=== PATIENT | male | born 1935 | race Caucasian/White ===

== ENCOUNTER 2016-06-05 16:00 | Observation (INO) | payer MEDICARE, OTHER ==
[~2016-06-05] VITALS: Ht 188 cm; Wt 84.0 kg
[~2016-06-05 16:00] MED LIST: ASPI325T32 PO; CHOL200025 PO; DOCU100T2 PO; LIP40 PO; METF500T4 PO; METO25TA6 PO; POLY17PO6 PO; POTA-62 PO; [UNRECOGNIZED DRUG - OTHER] PO; [UNRECOGNIZED DRUG - OTHER] PO; [UNRECOGNIZED DRUG - OTHER] PO; [UNRECOGNIZED DRUG - OTHER] PO; [UNRECOGNIZED DRUG - OTHER] PO; [UNRECOGNIZED DRUG - OTHER] PO
[2016-06-05 16:34] VITALS: BP 103/63; PULSE 105; RESP 18; O2SAT 98
[2016-06-05] MEDS ORDERED: APIX5TAB PO (18:07)
[2016-06-05 18:12] LABS: BASOPHILS % (AUTO) 0.8 % (0-3); EOSINOPHILS % (AUTO) 0.3 % (0-5); MONOCYTES % (AUTO) 14.4 % (4-12); Mean Corpuscular Hemoglobin 23.6 pg (27.0-35.0); Mean Corpuscular Volume 76.7 fL (81-100); NEUTROPHILS % (AUTO) 61.2 % (40-74); Platelet Count 76 bil/L (150-400)
[2016-06-05 18:22] LABS: Magnesium 2.2 mg/dL (1.6-2.6)
[2016-06-05 18:31] LABS: TROPONIN T < 0.010 ug/L (0.0-0.011)
--- NOTE | 2016-06-05 19:12 | DRSVH ---
PROCEDURE: X-RAY CHEST ONE VIEW, PORTABLE ([id number]) INDICATIONS: 81 year-old male with shortness of breath. TECHNIQUE: One view of the chest was acquired. COMPARISON: [facility], CT, CT CHEST ABD PELVIS W CON, 06/02/2016, 13:47. [facility], CR, XR CHEST 1VW, 03/08/2016, 13:54. [facility], CR, XR CHEST 2VW, 02/21/2016, 17:38. [facility], CR, XR CHEST 1VW (PORTABLE), 04/13/2015, 3:37. FINDINGS: Surgical changes and devices: Patient is status post coronary artery bypass grafting and cholecystect kiley. Lungs and pleura: Moderate right and small left subpulmonic pleural effusions are unchanged. No pneum othorax. There is persistent right lower lung airspace opacity. Mediastinum: Mediastinal contours appear normal. There is mild cardiomegaly. There is aortic athero sclerosis. Bones and chest wall: No suspicious bony lesions. Overlying soft tissues appear unremarkable. IMPRESSION: 1. Persistent moderate right and small left subpulmonic pleural effusions. 2. Persistent right lower lung airspace opacity, consistent with compressive atelectasis as better se en on recent CT scan. Dictated by: Fish Boyle M.D. on 06/05/2016 at 19:10 Approved by: Fish Boyle M.D. on 06/05/2016 at 19:10
--- NOTE | 2016-06-05 19:17 | ED.REPORT ---
HPI-General Illness Date of Service Jun 05, 2016 ED Provider: Flor Chacon MD Mr. Zambrano is an 81 y/o man with lymphoma who presents today for weakness for the past 1 week. He has a decreased appetite and urinary frequency. "All I want to do is sleep." Per pt's , over the past 2 days he has not had the strength to use a cane to walk. He had to have a wheelchair to get to the doctor 's office today. He was told at today's appointment that the lymphoma has spread from his chest into his pelvis. Nursing Notes Stated Complaint: FAILURE TO THRIVE Chief Complaint: General Complaint Allergies: Coded Allergies: No Known Allergies (Unverified , 04/13/15) PT VERIFIES THAT HE HAS NO KNOWN ALLERGIES Scheduled Apixaban (Eliquis) 5 Mg Tablet 5 MG PO BID Atorvastatin (Lipitor) 40 Mg Tablet 40 MG PO DAILY Cholecalciferol (Vitamin D3) (Vitamin D3) 2,000 Unit Tablet 2,000 UNIT PO DAILY Metformin (Metformin) 500 Mg Tablet 500 MG PO BIDWM Metoprolol Tartrate (Metoprolol Tartrate) 25 Mg Tablet 12.5 MG PO BID General Time Seen by MD: 18:51 Chief Complaint Weakness Sudden in Onset?: No Onset Occurred: 1 week ago Symptom Duration: 1 week Severity: Current: No pain currently Associated with: Reports: Anorexia (for 3 years), Cough (when he swallows unthickened water), Denies: Abdominal pain, Bleeding, Chest pain, Fever, Nausea, Shortness of breath, Vomiting Recent Healthcare: Recent doctor visit (had to use wheelchair to get pt outside of house) Past Medical History Past Medical History - 1994, 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 High cholesterol Non-Hodgkin's Lymphoma - infusions of Rituximab Reports: Diabetes mellitus (type II), Hyperlipidemia, Hypertension, Stroke (2-3 years ago) Past Surgical History Cholecystectomy Right Hip surgery (SAMM) Middle ear surgery Reports: CABG Family History Noncontributory Smoking History Never Smoker Social History Alcohol Use: 1-3 per week Drug Use: Denies drug use Other Social History: , Local resident Ambulatory Status Cane (recently) Review of Systems Full Review of Systems Constitutional: Reports: Fatigue, Lethargy, Recent wt loss, Weakness - generalized, Denies: Chills, Fever Eyes: Denies: Blurred bilateral, Discharge bilateral, Eye pain bilateral, Redness bilateral Ears / Nose / Throat: Reports: 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), Denies: Ear drainage bilateral, Ear ringing bilateral, Hearing loss right, Nasal congestion, Sore throat, Throat pain Respiratory: Denies: Dyspnea on exertion, Non-productive cough, Pleuritic pain , Shortness of breath, Wheezing Cardiovascular: Reports: Edema (in legs), Denies: Chest pain GI: Reports: Anorexia, Denies: Abdominal pain, Constipation, Diarrhea, Dysphagia, Hematochezia, Melena Male: Reports Hematuria (dark brown urine), Reports Urinary frequency, Reports Urination increased, Denies Dysuria, Denies Penile discharge Musculoskeletal: Denies: Back pain, Extremity pain, Extremity swelling, Joint pain, Joint swelling, Lumbar pain, Myalgia, Neck pain, Thoracic pain Hematologic: Denies Bleeding, Denies Bruising Endocrine: Reports: Weight loss, Denies: Cold intolerance, Heat intolerance, Polydipsia, Polyphagia, Polyuria Skin: Denies Bruising, Denies Diaphoresis, Denies Itching, Denies Rash, Denies Swelling, Denies Unexplained bruises Physical Exam General: Thin, no acute distress, well-developed, appropriately interactive HEENT: Normocephalic, atraumatic. External ears without defect. Pupils equal, round, and reactive to light and accommodation. Anicteric sclerae, moist conjunctivae, and no lid lag. Oropharynx dry mucousa free of erythema and cobble stoning. Neck: Supple with full range of motion. No jugular venous distension. No bruits. No lymphadenopathy or thyromegaly. Cardiovascular: Irregular rate and rhythm Pulmonary: Decreased breath sounds bilaterally. Clear to auscultation bilaterally with no crackles, wheezes, or rhonchi. Normal respiratory effort with no use of accessory muscles. Abdomen: Palpable midline. Bowel tones present. Soft, nontender, nondistended. No hepatosplenomegaly. Extremities: Bilateral pitting edema on lower extremity to thigh, R>L. No clubbing, cyanosis, or lymphadenopathy appreciated. Skin: Dry. Normal temperature and texture; no rash, ulcers, or subcutaneous nodules appreciated. Neurological: Cranial nerves grossly intact. Psychiatric: Normal mood and affect. Alert and oriented to person, place, and time. Vital Signs Vital Signs Date Time Temp Pulse Resp B/P Pulse Ox O2 Delivery O2 Flow Rate FiO2 06/05/16 19:38 36.9 106 29 117/45 95 Room Air 06/05/16 16:34 36.4 105 18 103/63 98 Initial VS: Reviewed Interpretation & Diagnostics Interpretation & Diagnostics: CXR done today IMPRESSION: 1. Persistent moderate right and small left subpulmonic pleural effusions. 2. Persistent right lower lung airspace opacity, consistent with compressive atelectasis as better seen on recent CT scan. Dictated by: Fish Boyle M.D. on 06/05/2016 at 19:10 Approved by: Fish Boyle M.D. on 06/05/2016 at 19:10 CT chest, abdomen, and pelvis with contrast on 06/02/2016: IMPRESSION: 1. Bilateral pleural fluid collections stable compared to 04/03/16. 2. Mediastinal lymphadenopathy stable compared to 04/03/16. 3. Bulky, bilateral iliac pelvic mayelin mass markedly increased in size compared to 04/03/16. The bulky pelvic mayelin mass is having marked local mass effect in the lower pelvis. 4. Moderate bilateral hydroureteronephrosis related to bulky pelvic mayelin mass with diminished bilateral renal enhancement compatible with obstructive uropathy. 5. New right inguinal bulky lymphadenopathy and enlarged left anterior pelvic wall subcutaneous lymphadenopathy. 6. Moderate fecal loading throughout the colon likely related to mass effect on the rectosigmoid colon caused by the bulky pelvic mayelin mass. 7. Mild splenomegaly. Dictated by: Fanny King MD, PhD on 06/02/2016 at 15:30 Approved by: Fanny King MD, PhD on 06/02/2016 at 15:30 Lab Results Interpretation Result Diagram: 06/05/16 1736 06/05/16 1736 Test 06/05/16 17:36 06/05/16 19:50 White Blood Count 3.7th/mm3 (3.8-10.1) Red Blood Count 4.07mil/mm3 (4.40-5.80) Hemoglobin 9.6g/dL (13.8-17.2) Hematocrit 31.2% (41.0-50.0) Mean Corpuscular Volume 76.7fL (81-100) Mean Corpuscular Hemoglobin 23.6pg (27.0-35.0) Mean Corpuscular Hemoglobin Concent 30.8% (32.0-37.0) Red Cell Distribution Width 22.9% (12.3-15.4) Platelet Count 76bil/L (150-400) Neutrophils (%) (Auto) 61.2% (40-74) Lymphocytes (%) (Auto) 23.0% (14-46) Monocytes (%) (Auto) 14.4% (4-12) Eosinophils (%) (Auto) 0.3% (0-5) Basophils (%) (Auto) 0.8% (0-3) Sodium Level 138mEq/L (134-144) Potassium Level 4.4mEq/L (3.5-5.2) Chloride Level 97mEq/L (97-108) Carbon Dioxide Level 23mmol/L (18-29) Blood Urea Nitrogen 33mg/dL (8-27) Creatinine 1.59mg/dL (0.76-1.27) Estimat Glomerular Filtration Rate 45mL/min (>59) Glucose Level 100mg/dL (60-99) Calcium Level 10.1mg/dL (8.5-10.1) Magnesium Level 2.2mg/dL (1.6-2.6) Total Bilirubin 0.9mg/dL (0.0-1.2) Aspartate Amino Transf (AST/SGOT) 30U/L (0-50) Alanine Aminotransferase (ALT/SGPT) 10U/L (0-44) Alkaline Phosphatase 95U/L (25-160) Troponin T < 0.010ug/L (0.0-0.011) Total Protein 6.2g/dL (6.4-8.4) Albumin 3.4g/dL (3.4-5.0) Urine Color Yellow (YELLOW) Urine Appearance Cloudy (CLEAR,HAZY) Urine pH 5.0 (5.0-8.0) Urine Specific [place] 1.025 (1.003-1.035) Urine Protein 100mg/dL (NEG,TRACE) Urine Glucose (UA) Negativemg/dL (NEGATIVE) Urine Ketones Tracemg/dL (NEGATIVE) Urine Occult Blood Large (NEGATIVE) Urine Nitrite Negative (NEGATIVE) Urine Bilirubin Negative (NEGATIVE) Urine Urobilinogen Normalmg/dL (NORMAL) Urine Leukocyte Esterase Negative (NEGATIVE) Urine RBC Packed/hpf (0-2) Urine WBC 0-5/hpf (0-5) Urine Epithelial Cells Moderate/hpf (NONE-MOD) Urine Crystals Amorphous urates (NONE Urine Bacteria Few/hpf (NONE-FEW) Urine Hyaline Casts None/lpf (NONE) Urine Granular Casts 5-20 (NONE SEEN) Urine Waxy Casts None seen (NONE SEEN) Urine Red Blood Cell Casts None seen (NONE SEEN) Urine White Blood Cell Casts None seen (NONE SEEN) Urine Mucus None seen (None Seen) Urine Trichomonas None seen (NONE SEEN) Urine Yeast None (NONE SEEN) Urinalysis Comment None Urine Culture Reflexed Not indicated Re-Eval/Medical Decision Med Decision/Clinical Course 1. Failure to thrive -Pt reports decreased oral intake and increased generalized weakness for the past 1 week -CXR done today was stable -Pt received IV fluids in the ED -Most recent CT chest, abdomen, and pelvis on 06/02/2016 showed more masses in his pelvis Consultation : Referral / Consult Name: Deisi Schmitz MD Consulted With: Hospitalist Call Returned at: 21:46 Neurology Technologist: Agrees with eval, Agrees with plan, Accepts admit Note: Dr. Chacon consulted with hospitalist Discharge & Departure Shift Change Sign-Out Patient Care Transferred: Yes Laboratory Evaluation: Back, reviewed by me Imaging Studies: Done, reviewed by me Primary Impression: Failure to thrive Failure to thrive age range: in adult Qualified Code: R62.7 - Adult failure to thrive Additional Impression: Weakness generalized Disposition: ADMITTED TO HOSPITAL Referrals: Khang Rodas MD (PCP) Attending Statement Pt seen and examined with Dr Cho. Progressive lymphoma with failure to thrive too weak for home care will benefit from palliative care/hospice consult. Admitted to hospital Nallely Cho DO Jun 05, 2016 19:17 ARMIRO FRIEND Jun 05, 2016 21:48 Flor Chacon MD Jun 06, 2016 00:15
[2016-06-05] MEDS ORDERED: 0.9% Sodium Chloride 1,000 ML IV ONE (19:23)
[2016-06-05 19:38] VITALS: BP 117/45; PULSE 106; RESP 29; O2SAT 95
[2016-06-05 21:45] LABS: APPEARANCE,URINE CLOUDY (CLEAR,HAZY); COLOR,URINE YELLOW (YELLOW); OCCULT BLOOD,URINE LARGE (NEGATIVE); UROBILINOGEN,URINE NORMAL (NORMAL)
[2016-06-05 22:15] VITALS: BP 142/36; PULSE 82; RESP 16; O2SAT 99
[2016-06-05] MEDS ORDERED: Ondansetron 2 mg/mL 2 mL Inj IVPUSH PRN (22:30)
[2016-06-05] MEDS ORDERED: Polyethylene Glycol (PEG) 17 Gm Powder PO PRN (22:30)
[2016-06-05] MEDS ORDERED: Alum-Mag Hydrox-Simeth 30 mL Suspension PO PRN (22:30)
--- NOTE | 2016-06-05 22:38 | PCM.HPMED ---
Subjective Date of Service Jun 05, 2016 Primary Provider: Admitting Physician: Deisi Schmitz MD Primary Care Physician: Khang Rodas MD Attending Physician: Deisi Schmitz MD Admit Status: From the Emergency Department, 23-Hour Observation, Non-Telemetry Chief Complaint: Increasing generalized weakness History of Present Illness: This is an 81-year-old male who has a history of non-Hodgkin's lymphoma who presented to the ER with increasing generalized weakness over the past 1 week. Decreased appetite along with increased urinary frequency. He did go to his oncologist office today Dr. Rao and per was told that his lymphoma has been progressing. He and his at this point requested comfort care only. She does have a pulse form with her and also includes no antibiotic therapy. At this point he is too weak for the to take care of him and are looking for possible placement. Review of Systems: Denies any abdominal pain nausea or vomiting. Does feel quite tired. Does have cough with liquids. He has had progressive anorexia over the past few years. All other review of systems are reviewed and are negative except for as in history of present illness. Allergies Coded Allergies: No Known Allergies (Unverified , 04/13/15) PT VERIFIES THAT HE HAS NO KNOWN ALLERGIES Home Medications Scheduled Apixaban (Eliquis) 5 Mg Tablet 5 MG PO BID Atorvastatin (Lipitor) 40 Mg Tablet 40 MG PO DAILY Cholecalciferol (Vitamin D3) (Vitamin D3) 2,000 Unit Tablet 2,000 UNIT PO DAILY Metformin (Metformin) 500 Mg Tablet 500 MG PO BIDWM Metoprolol Tartrate (Metoprolol Tartrate) 25 Mg Tablet 12.5 MG PO BID [facility] PAST MEDICAL HISTORY: Significant for: 1. Marginal zone lymphoma diagnosed in 2006, detailed in my clinic note dated March 15, 2016, under the [facility]. Briefly the patient was placed into a clinical remission with single agent rituximab back in September 2014. He had a recurrence of his disease back in January 2016, presenting with increasing shortness of breath and cough. The patient underwent second-line therapy with bendamustine and rituximab; one cycle was administered on February 16, 2016. Restaging CT scan of the chest, abdomen, and pelvis dated April 03, 2016, a reflection of one cycle of therapy, showing significant decrease in the mediastinal adenopathy, retroperitoneal and iliac chain adenopathy, as well as decreased size of the spleen as compared to baseline scan. There was no change in the right greater than left pleural effusion. The patient's treatment has also been on hold secondary to decreased performance status with an approximate 6 kg weight loss over the past four months. Initial workup including random cortisol, TSH, and testosterone levels in March 2016 only showing a mildly decreased testosterone level of 212. Recent bone marrow biopsy dated May 08, 2016, showing normal cellular marrow, with decreased maturing granulocytes and relative erythroid hyperplasia, but no morphological or immunophenotypical evidence of lymphoma. Flow cytometry from the aspirate was otherwise unremarkable for B-cell lymphoma. There is no evidence of myelofibrosis or myelodysplasia. Cellularity was noted to be 30% to 35%. Megakaryocytes were adequate. Maturing granulocyte population was markedly decreased in comparison with the maturing erythroid series. Cytogenetics reporting a normal 46 XY chromosome pattern. 2. CVA. 3. Coronary artery disease. 4. Secondary thrombocytopenia. 5. Diabetes. 6. Hypertension. 7. Hypercholesterolemia. Past Medical History [place] - 1994, 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 High cholesterol Non-Hodgkin's Lymphoma - infusions of Rituximab Reports: Diabetes mellitus (type II), Hyperlipidemia, Hypertension, Stroke (2-3 years ago) Past Surgical History Cholecystectomy Right Hip surgery (SMAM) Middle ear surgery Reports: CABG Social History Hx Alcohol Use: No Hx Substance Use: No Smoking Status: Never Smoker Living Arrangement: with Family Exam Vital Signs Vital Sign - Last Date Time Temp Pulse Resp B/P Pulse Ox O2 Delivery O2 Flow Rate FiO2 06/05/16 22:15 82 16 142/36 99 Room Air 06/05/16 19:38 36.9 Exam Constitutional: Lethargic elderly male new Head: Normocephalic atraumatic Eyes: PERRLA DC [place] Neck: no adenopathy Chest: decreased breath sounds at his bases Cor: Regular rate and rhythm S1-S2 Abdomen: Soft nontender bowel sounds present Extremity: Trace bilateral pedal edema Skin: No rashes Psych: Normal mood and affect Neuro: Alert and oriented 3 and moves all extremities equally Lab and Diagnostics Labs Laboratory Tests 72 Hours Test 06/05/16 17:36 06/05/16 19:50 White Blood Count 3.7th/mm3 (3.8-10.1) Red Blood Count 4.07mil/mm3 (4.40-5.80) Hemoglobin 9.6g/dL (13.8-17.2) Hematocrit 31.2% (41.0-50.0) Mean Corpuscular Volume 76.7fL (81-100) Mean Corpuscular Hemoglobin 23.6pg (27.0-35.0) Mean Corpuscular Hemoglobin Concent 30.8% (32.0-37.0) Red Cell Distribution Width 22.9% (12.3-15.4) Platelet Count 76bil/L (150-400) Neutrophils (%) (Auto) 61.2% (40-74) Lymphocytes (%) (Auto) 23.0% (14-46) Monocytes (%) (Auto) 14.4% (4-12) Eosinophils (%) (Auto) 0.3% (0-5) Basophils (%) (Auto) 0.8% (0-3) Sodium Level 138mEq/L (134-144) Potassium Level 4.4mEq/L (3.5-5.2) Chloride Level 97mEq/L (97-108) Carbon Dioxide Level 23mmol/L (18-29) Blood Urea Nitrogen 33mg/dL (8-27) Creatinine 1.59mg/dL (0.76-1.27) Estimat Glomerular Filtration Rate 45mL/min (>59) Glucose Level 100mg/dL (60-99) Calcium Level 10.1mg/dL (8.5-10.1) Magnesium Level 2.2mg/dL (1.6-2.6) Total Bilirubin 0.9mg/dL (0.0-1.2) Aspartate Amino Transf (AST/SGOT) 30U/L (0-50) Alanine Aminotransferase (ALT/SGPT) 10U/L (0-44) Alkaline Phosphatase 95U/L (25-160) Troponin T < 0.010ug/L (0.0-0.011) Total Protein 6.2g/dL (6.4-8.4) Albumin 3.4g/dL (3.4-5.0) Urine Color Yellow (YELLOW) Urine Appearance Cloudy (CLEAR,HAZY) Urine pH 5.0 (5.0-8.0) Urine Specific [place] 1.025 (1.003-1.035) Urine Protein 100mg/dL (NEG,TRACE) Urine Glucose (UA) Negativemg/dL (NEGATIVE) Urine Ketones Tracemg/dL (NEGATIVE) Urine Occult Blood Large (NEGATIVE) Urine Nitrite Negative (NEGATIVE) Urine Bilirubin Negative (NEGATIVE) Urine Urobilinogen Normalmg/dL (NORMAL) Urine Leukocyte Esterase Negative (NEGATIVE) Urine RBC Packed/hpf (0-2) Urine WBC 0-5/hpf (0-5) Urine Epithelial Cells Moderate/hpf (NONE-MOD) Urine Crystals Amorphous urates (NONE Urine Bacteria Few/hpf (NONE-FEW) Urine Hyaline Casts None/lpf (NONE) Urine Granular Casts 5-20 (NONE SEEN) Urine Waxy Casts None seen (NONE SEEN) Urine Red Blood Cell Casts None seen (NONE SEEN) Urine White Blood Cell Casts None seen (NONE SEEN) Urine Mucus None seen (None Seen) Urine Trichomonas None seen (NONE SEEN) Urine Yeast None (NONE SEEN) Urinalysis Comment None Urine Culture Reflexed Not indicated Result Diagram: 06/05/[id number]/[id number] X-Rays, CTs and MRIs Patient Name: TODD JOSEPH MR#: [id number] Location: [facility] [place] Ordering Phys: DOC, ED Date of Service: 06/05/16 1720 PROCEDURE: X-RAY CHEST ONE VIEW, PORTABLE ([id number]) INDICATIONS: 81 year-old male with shortness of breath. TECHNIQUE: One view of the chest was acquired. COMPARISON: [facility], CT, CT CHEST ABD PELVIS W CON, 06/02/2016, 13:47. [facility], CR, XR CHEST 1VW, 03/08/2016, 13:54. [facility], CR, XR CHEST 2VW, 02/21/2016, 17:38. [facility], CR, XR CHEST 1VW (PORTABLE), 04/13/2015, 3:37. FINDINGS: Surgical changes and devices: Patient is status post coronary artery bypass grafting and cholecystectomy. Lungs and pleura: Moderate right and small left subpulmonic pleural effusions are unchanged. No pneumothorax. There is persistent right lower lung airspace opacity. Mediastinum: Mediastinal contours appear normal. There is mild cardiomegaly. There is aortic atherosclerosis. Bones and chest wall: No suspicious bony lesions. Overlying soft tissues appear unremarkable. IMPRESSION: 1. Persistent moderate right and small left subpulmonic pleural effusions. 2. Persistent right lower lung airspace opacity, consistent with compressive atelectasis as better seen on recent CT scan. Dictated by: Fish Boyle M.D. on 06/05/2016 at 19:10 Approved by: Fish Boyle M.D. on 06/05/2016 at 19:10 Patient Name: TODD JOSEPH MR#: [id number] Location: [facility] Ordering Phys: Sang Rao DO Date of Service: 06/02/16 1237 PROCEDURE: CT CHEST, ABDOMEN AND PELVIS WTIH CONTRAST ([id number]) INDICATIONS: NON HODGKINS LYMPHOMA,RESTAGE TECHNIQUE: After the administration of oral and intravenous contrast, 5 mm thick sections acquired from the lung apices to the symphysis. 5 mm coronal and sagittal reformats were performed, with additional 7 mm coronal MIP reformats through the lungs. For radiation dose reduction, the following was used: automated exposure control, adjustment of mA and/or kV according to patient size. COMPARISON: [facility], CT, CT CHEST ABD PELVIS W CON, 02/04/2016, 13:23. [facility], CR, CHEST 1VW, 12/08/2014, 9:46. [facility], CT, CHEST/ABD/PELVIS W/CON (PNL), 01/28/2014, 16:34. [facility], CT, CHEST/ABD/PELVIS W/CON (PNL), 01/21/2013, 11:30. [facility], CT, NECK/CHEST/ABD/PEL W/CONT (P), 09/18/2011, 15:45. [facility], CT, CT CHEST ABD PELVIS W CON, 06/16/2015, 13:25. [facility], CT, CT CHEST ABD PELVIS W CON, 04/03/2016, 15:39. FINDINGS: Image quality: Excellent. CHEST: Lungs and pleura: Atelectasis within the right lung base is stable compared to prior examination. Rounded atelectasis in the left lung base/lateral lingula is stable compared to prior examination. Moderate-sized peripheral enhancing right- sided pleural fluid collection is stable. Small, peripherally enhancing left- sided pleural fluid collection is stable. Central and peripheral airways appear patent and normal in caliber. Mediastinum: The heart is enlarged. Postsurgical changes compatible with prior CABG procedure again noted. No pericardial effusion. Left paramedian, prevascular mediastinal soft tissue density mass is stable in size and contour compared to prior CT scan measuring 3.3 x 2.8 cm in the current study (3.4 x 2.7 cm previously). Precarinal mediastinal lymphadenopathy is stable compared to prior examination measuring 1.4 cm in the short axis in the current study ( 1.4 cm previously). No new mediastinal lymphadenopathy identified. No hilar adenopathy by size criteria. Thoracic aorta and central pulmonary arteries are normal in size. Esophagus is normal in caliber. Small hiatal hernia is stable. Chest wall: No axillary or supraclavicular adenopathy by size criteria. Thyroid gland is within normal limits. ABDOMEN: Solid organs: Liver is normal in size and enhancement. The spleen is mildly enlarged at 15.3 cm in longitudinal axis. Gallbladder is surgically absent. Biliary system is non dilated. Pancreas enhances normally. No adrenal nodules. Kidneys demonstrate normal size with diminished bilateral enhancement and bilateral moderate hydroureteronephrosis related to bulky pelvic lymphadenopathy. Peritoneum and bowel: Bowel loops demonstrate normal wall thickness and caliber. Moderate amount of stool seen throughout the colon. No free air. Moderate amount of scattered ascites is noted in the abdomen and pelvis. Nodes and vessels: Bulky, confluent, bilateral iliac mayelin masses are increased in size compared to prior examinations. The confluent, bulky pelvic lymphadenopathy is having mass effect on loops of bowel, the distal ureters, urinary bladder and the pelvic vasculature. Aorta and inferior vena cava are normal in size. Miscellaneous: No ventral hernias. PELVIS: Genitourinary: Bladder wall thickness is normal. Miscellaneous: No inguinal hernias. Bulky right inguinal lymphadenopathy is noted with largest lymph node measuring 2.6 cm in short axis. Large lymph node is noted in the subcutaneous fat of anterior left pelvic wall that measures 1.7 cm in short axis. Bones: No suspicious bony lesions. No vertebral body compression fractures. Postsurgical changes compatible with right hip arthroplasty are noted. IMPRESSION: 1. Bilateral pleural fluid collections stable compared to 04/03/16. 2. Mediastinal lymphadenopathy stable compared to 04/03/16. 3. Bulky, bilateral iliac pelvic mayelin mass markedly increased in size compared to 04/03/16. The bulky pelvic mayelin mass is having marked local mass effect in the lower pelvis. 4. Moderate bilateral hydroureteronephrosis related to bulky pelvic mayelin mass with diminished bilateral renal enhancement compatible with obstructive uropathy. 5. New right inguinal bulky lymphadenopathy and enlarged left anterior pelvic wall subcutaneous lymphadenopathy. 6. Moderate fecal loading throughout the colon likely related to mass effect on the rectosigmoid colon caused by the bulky pelvic mayelin mass. 7. Mild splenomegaly. 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 # Type II diabetes, chronic, present on admission We will continue with his metformin # Hyperlipidemia, chronic, present on admission Continue with statin therapy # Oral anticoagulation, chronic, present on admission Continue with apixaban which I believe he is on this for paroxysmal atrial fibrillation # DVT prophylaxis Patient is on apixaban # CODE STATUS DO NOT RESUSCITATE DO NOT INTUBATE, Comfort Care only Pain Evaluation: Adequate Pain Control GI Prophylaxis: H2 federico VTE Prophylaxis: Other (patient is on apixaban) Resuscitation Status: DNR/DNI:Do Not Resuscitate/Intubate Time spent 45 minutes Deisi Schmitz MD Jun 05, 2016 22:38
[2016-06-05 22:55] VITALS: BP 109/62; PULSE 18; RESP 18; O2SAT 95
[2016-06-05 23:10] VITALS: BP 142/36; PULSE 82; RESP 16; O2SAT 99
[2016-06-05] MEDS: 0.9% Sodium Chloride 1,000 ML IV SCH (23:27)
[2016-06-06] VITALS (8 sets, daily range): BP systolic 100–121; BP diastolic 59–69; PULSE 89–106; RESP 16–22; O2SAT 93–96
[2016-06-06] MEDS ORDERED: Heparin 5,000 Unit/mL Inj SUBQ SCH (00:30)
--- NOTE | 2016-06-06 00:33 | NUR ---
Admit Patient arrived to floor at 2255 via gurney. Report given by Shari. Patient on room air. Vitals stable. Peripheral IV in left AC. Patient weak and unable to stand.
--- NOTE | 2016-06-06 03:06 | NUR ---
Unilateral edema Patient's right leg was larger than the left leg upon admission. Contacted Dr. Schmitz. She stated the patient was on Apixaban and should not be at risk of DVT. Patient stated he took his Apixaban this morning.
--- NOTE | 2016-06-06 06:41 | NUR ---
Rest Patient has been resting most of the night. Patient is incontinent of urine and is wearing a brief. Patient taking pain medications with nectar thick liquids. A&Ox3. Room air 94%.
[2016-06-06] MEDS: 0.9% Sodium Chloride 1,000 ML IV SCH ×2 (09:27→19:55)
--- NOTE | 2016-06-06 16:27 | NUR ---
Social Work Screening D: EMR Reviewed. 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 Insurance is Medicare and for Life. PCP is Dr. Rodas. Per EMR, Pt lives at home with his Pao [phone]. Pt's no longer able to care for Pt. Pt on comfort measures and requesting Hospice. LUISA contacted Tata at [facility] to request an information visit. Tata called back and reported information could be scheduled for tomorrow, Sunday. LUISA attempted several times to meet with Pt's spouse but not present in room. SW will follow up first thing Sunday morning. A: Pt who is end of life P: Pt's no longer able to care for Pt. Pt on comfort measures and requesting Hospice. LUISA contacted Tata at [facility] to request an information visit. Tata called back and reported information could be scheduled for tomorrow, Sunday. LUISA attempted several times to meet with Pt's spouse but not present in room. LUISA will follow up first thing Sunday morning. FRENCH Le
--- NOTE | 2016-06-06 16:30 | NUR ---
ACTIVITY/DIET Patient denies pain. Poor appetite. Tolerating liquids PO. Denies nausea. No emesis noted. Denies SOB. Turned and repositioned Q 2 hrs. Stage 2 pressure ulcer noted on his sacral area. WCS assessed the patient. Per WCS current mattress is suitable at this time. Mepilex foam to be placed on his sacral area. To be changed Q 2-3 days. Care continues.
--- NOTE | 2016-06-06 17:53 | NUR ---
Wound Care PU protocol received, pt seen at bedside. 81 year-old male who has a history of non-Hodgkin's lymphoma who presented to the ER with increasing generalized weakness over the past 1 week. Presents in standard hospital bed, right heel red but blanchable, left is fine. Mepilex removed from back reveals small stage 2 PU 1 cm in diameter at coccxy. Recommend frequent repositioning, pt placed in left sidelying, heels floated. Pressure precautions in place.
--- NOTE | 2016-06-06 19:49 | NUR ---
Case Management: Attempted to provide Observation Brochure but patient was sleeping soundly and no family present at 1930. Try again tomorrow am. Yi Rogers RN
--- NOTE | 2016-06-07 04:18 | NUR ---
Rest Patient resting quietly in bed this shift. Patient uses call light appropriately when he would like assistance. Patient is incontinent of urine and is wearing a brief. Patient A&Ox3. Cooperative with care and good at letting staff know what he needs. Patient on rm air at 95%. Call light within reach.
[2016-06-07] MEDS: 0.9% Sodium Chloride 1,000 ML IV SCH ×2 (06:20→17:34)
[2016-06-07 06:21] VITALS: BP 110/67; PULSE 108; RESP 18; O2SAT 96
--- NOTE | 2016-06-07 07:29 | PCM.PNMED ---
Subjective Date of Service Jun 07, 2016 Subjective pt seen and examined, pt has no complaints at the moment. Patient is eating much better. Exam Vital Signs Vital Sign - Last Date Time Temp Pulse Resp B/P Pulse Ox O2 Delivery O2 Flow Rate FiO2 06/07/16 06:21 36.5 108 18 110/67 96 Room Air Intake and Output 06/06/16 06/06/16 06/07/16 Cumulative From/Thru 15:00 23:00 07:00 06/05/16 16:34 - 06/07/16 06:44 Intake Total 2451 ml 1805 ml 5656 ml Output Total 175 ml 406 ml 931 ml Balance 2276 ml 1399 ml 4725 ml Intake Oral 760 ml 527 ml 1337 ml IV Total 1691 ml 1278 ml 3969 ml TPN/PPN 350 ml Output Urine Total 175 ml 406 ml 931 ml # Voids 2 4 # Bowel Movements 0 0 Exam General: Generally well appearing male, more conversive this morning HEENT: sclerae anicteric, oral mucosa moist Neck: no apparent JVD Chest: clear to auscultation Cardiac: S1S2, no murmur Abdomen: BS active, non-tender, not bloated or tympanitic Extremities: No edema Neuro: A&O, cranial nerves symmetric, motor strength and coordination normal Lab and Diagnostics Result Diagram: 06/05/16173506/05/161735 X-Rays, CTs and MRIs Patient Name: TODD JOSEPH MR#: [id number] Location: [facility] Ordering Phys: JESSY, ED Date of Service: 06/05/16 172 PROCEDURE: X-RAY CHEST ONE VIEW, PORTABLE ([id number]) INDICATIONS: 81 year-old male with shortness of breath. TECHNIQUE: One view of the chest was acquired. COMPARISON: [facility], CT, CT CHEST ABD PELVIS W CON, 06/02/2016, 13:47. [facility], CR, XR CHEST 1VW, 03/08/2016, 13:54. [facility], CR, XR CHEST 2VW, 02/21/2016, 17:38. [facility], CR, XR CHEST 1VW (PORTABLE), 04/13/2015, 3:37. FINDINGS: Surgical changes and devices: Patient is status post coronary artery bypass grafting and cholecystectomy. Lungs and pleura: Moderate right and small left subpulmonic pleural effusions are unchanged. No pneumothorax. There is persistent right lower lung airspace opacity. Mediastinum: Mediastinal contours appear normal. There is mild cardiomegaly. There is aortic atherosclerosis. Bones and chest wall: No suspicious bony lesions. Overlying soft tissues appear unremarkable. IMPRESSION: 1. Persistent moderate right and small left subpulmonic pleural effusions. 2. Persistent right lower lung airspace opacity, consistent with compressive atelectasis as better seen on recent CT scan. Dictated by: Fish Boyle M.D. on 06/05/2016 at 19:10 Approved by: Fish Boyle M.D. on 06/05/2016 at 19:10 Patient Name: TODD JOSEPH MR#: [id number] Location: [facility] Ordering Phys: Sang Rao DO Date of Service: 06/02/16 1237 PROCEDURE: CT CHEST, ABDOMEN AND PELVIS WTIH CONTRAST ([id number]) INDICATIONS: NON HODGKINS LYMPHOMA,RESTAGE TECHNIQUE: After the administration of oral and intravenous contrast, 5 mm thick sections acquired from the lung apices to the symphysis. 5 mm coronal and sagittal reformats were performed, with additional 7 mm coronal MIP reformats through the lungs. For radiation dose reduction, the following was used: automated exposure control, adjustment of mA and/or kV according to patient size. COMPARISON: [facility], CT, CT CHEST ABD PELVIS W CON, 02/04/2016, 13:23. [facility], CR, CHEST 1VW, 12/08/2014, 9:46. [facility], CT, CHEST/ABD/PELVIS W/CON (PNL), 01/28/2014, 16:34. [facility], CT, CHEST/ABD/PELVIS W/CON (PNL), 01/21/2013, 11:30. [facility], CT, NECK/CHEST/ABD/PEL W/CONT (P), 09/18/2011, 15:45. [facility], CT, CT CHEST ABD PELVIS W CON, 06/16/2015, 13:25. [facility], CT, CT CHEST ABD PELVIS W CON, 04/03/2016, 15:39. FINDINGS: Image quality: Excellent. CHEST: Lungs and pleura: Atelectasis within the right lung base is stable compared to prior examination. Rounded atelectasis in the left lung base/lateral lingula is stable compared to prior examination. Moderate-sized peripheral enhancing right- sided pleural fluid collection is stable. Small, peripherally enhancing left- sided pleural fluid collection is stable. Central and peripheral airways appear patent and normal in caliber. Mediastinum: The heart is enlarged. Postsurgical changes compatible with prior CABG procedure again noted. No pericardial effusion. Left paramedian, prevascular mediastinal soft tissue density mass is stable in size and contour compared to prior CT scan measuring 3.3 x 2.8 cm in the current study (3.4 x 2.7 cm previously). Precarinal mediastinal lymphadenopathy is stable compared to prior examination measuring 1.4 cm in the short axis in the current study ( 1.4 cm previously). No new mediastinal lymphadenopathy identified. No hilar adenopathy by size criteria. Thoracic aorta and central pulmonary arteries are normal in size. Esophagus is normal in caliber. Small hiatal hernia is stable. Chest wall: No axillary or supraclavicular adenopathy by size criteria. Thyroid gland is within normal limits. ABDOMEN: Solid organs: Liver is normal in size and enhancement. The spleen is mildly enlarged at 15.3 cm in longitudinal axis. Gallbladder is surgically absent. Biliary system is non dilated. Pancreas enhances normally. No adrenal nodules. Kidneys demonstrate normal size with diminished bilateral enhancement and bilateral moderate hydroureteronephrosis related to bulky pelvic lymphadenopathy. Peritoneum and bowel: Bowel loops demonstrate normal wall thickness and caliber. Moderate amount of stool seen throughout the colon. No free air. Moderate amount of scattered ascites is noted in the abdomen and pelvis. Nodes and vessels: Bulky, confluent, bilateral iliac mayelin masses are increased in size compared to prior examinations. The confluent, bulky pelvic lymphadenopathy is having mass effect on loops of bowel, the distal ureters, urinary bladder and the pelvic vasculature. Aorta and inferior vena cava are normal in size. Miscellaneous: No ventral hernias. PELVIS: Genitourinary: Bladder wall thickness is normal. Miscellaneous: No inguinal hernias. Bulky right inguinal lymphadenopathy is noted with largest lymph node measuring 2.6 cm in short axis. Large lymph node is noted in the subcutaneous fat of anterior left pelvic wall that measures 1.7 cm in short axis. Bones: No suspicious bony lesions. No vertebral body compression fractures. Postsurgical changes compatible with right hip arthroplasty are noted. IMPRESSION: 1. Bilateral pleural fluid collections stable compared to 04/03/16. 2. Mediastinal lymphadenopathy stable compared to 04/03/16. 3. Bulky, bilateral iliac pelvic mayelin mass markedly increased in size compared to 04/03/16. The bulky pelvic mayelin mass is having marked local mass effect in the lower pelvis. 4. Moderate bilateral hydroureteronephrosis related to bulky pelvic mayelin mass with diminished bilateral renal enhancement compatible with obstructive uropathy. 5. New right inguinal bulky lymphadenopathy and enlarged left anterior pelvic wall subcutaneous lymphadenopathy. 6. Moderate fecal loading throughout the colon likely related to mass effect on the rectosigmoid colon caused by the bulky pelvic mayelin mass. 7. Mild splenomegaly. 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 # Type II diabetes, chronic, present on admission We will continue with his metformin # Hyperlipidemia, chronic, present on admission Continue with statin therapy # Oral anticoagulation, chronic, present on admission Continue with apixaban which I believe he is on this for paroxysmal atrial fibrillation # DVT prophylaxis Patient is on apixaban # CODE STATUS DO NOT RESUSCITATE DO NOT INTUBATE GI Prophylaxis: H2 federico VTE Prophylaxis: Other (patient is on apixaban) VTE Mechanical Devices: Intermittant Pneumatic CD Resuscitation Status: DNR/DNI:Do Not Resuscitate/Intubate Ab Ayon MD Jun 07, 2016 07:29
--- NOTE | 2016-06-07 11:19 | NUR ---
Gave access and faxed facesheet to [facility] per TAX ACCOUNTING MANAGER, this will be private with hospice.
--- NOTE | 2016-06-07 11:54 | NUR ---
Case Management: OBS brochure given and explained to patient and spouse. Marga Stanton RN
--- NOTE | 2016-06-07 11:58 | NUR ---
Social Work Initial Assessment and Continued Discharge Planning: SW met with patient and at bedside to discuss discharge plan. Lisa is a 81 year old made admitted under observation status on 06/05/16 for failure to thrive and end stage lmphoma. Patient payer as Medicare and [employer]. Patient PCP as Khang Rodriguez. Patient resides with in [facility] who provides support and care. Patient has no previous C history. Patient has previous SNF history at [facility]. Patient was a walker for use at home. Patient has AD and patient was encouraged to bring in from home. Meeting with patient and [facility] took place. Patient signed consent with hospice. Patient states she will be unable to care for patient needs at home and seeking remote computer terminal operator care at SNF, [facility] per choice. Choice list offered and declined. SW notified SW salon assistant to send referral to [facility] for possible acceptance. Per hospice rep, SW to be contact to determine opening date/time. Patient to pay privately for SNF placement and in agreement. SW will continue to follow. PLAN: [facility] under hospice [facility] services, pending acceptance from SNF and hospice open time. SNF placement will be private pay, family in agreement. Lydia BRASWELL Addendum: 06/07/16 at 1204 by NASREEN NIEVES Amended: Links added. Addendum: 06/07/16 at 1611 by NASREEN FERNANDEZ SS Per Aislinn at [facility], patient accepted and agency plans to open services on Sunday at 10-11am. Rep aware of discharge for tomorrow and abilities to begin services on Sunday. Patient accepted to [facility] per SNF rep Mario. Facility to arrange transport. updated. SW will continue to follow. PLAN: Accepted to [facility] [place] with [facility] to follow and open services on Sunday from 10am-11am. Lydia BRASWELL
--- NOTE | 2016-06-07 12:38 | NUR ---
Edema Pt has significant edema in left hand and lower arm where IV is placed. IV is intact and patent with no s/s of infiltration. Per MD okay to reduce IV fluids to 75ml/hr. Pt also has scrotal swelling and bilateral pitting edema in lower legs and ankles. SCD's removed for 2 hours and feet elevated to help reduce swelling. Continue to monitor.
[2016-06-07 13:53] VITALS: BP 107/67; PULSE 91; RESP 19; O2SAT 94
--- NOTE | 2016-06-07 15:57 | NUR ---
NUTRITION ASSESSMENT: ASSESS: 81yo male admitted for failure to thrive and end stage Lymphoma. Upon admission, pt states becoming weaker over the last week prior to admission with decreased appetite and increased urinary frequency. Per notes, pt has experienced anorexia over the past several years. Lymphoma is progressing, and pt and expressed interest in hospice care. Met w/ pt to discuss options for consuming more high calorie, high protein foods. Discussed trying to eat smaller more frequent meals to increase calorie and protein intake. Per pt, his appetite seems to be improving. Pt was receptive to the information. 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 PO intake of 10-50% EST. NEEDS: Cancer, Wound & Severe Wt Loss Kcals: 9434-6205 kcal/day (30-35 kcal/kg) Pro: 100-125 g/kg (1.2-1.5g/kg) NUTRITION DIAGNOSIS: 1.) Severe Protein/Calorie Malnutrition related to decreased appetite and reported anorexia as evidenced by PO 10-50%, 11.3 kg wt loss in last 4 months (11.8% - severe), failure to thrive and end stage Lymphoma. 2.) Inadequate oral intake related to decreased appetite and progression of disease state as evidenced by PO 10-50%, significant wt loss (11.8% in last 4 months), and self-reported decreased appetite upon admission. NUTRITION INTERVENTION: 1.) Will add Magic Cup to L&D trays to help increase calorie and protein intake. 2.) Discussed high calorie/high protein diet information for ways to increase intake. MONITOR / EVAL: PO intake, wt., labs, GI, POC. Will continue to monitor per moderate nutrition risk guidelines. Addendum: 06/07/16 at [address] Auxiliary student documentation reviewed. I agree with above documentation. Mirlande Ovalle, MERRILL, CD
--- NOTE | 2016-06-07 17:43 | PROG NOTE ---
[address] [address] PROGRESS NOTE PATIENT: TODD JOSEPH : 1935 MR#: [id number] ADMIT: 06/05/2016 JOB ID: [id number] DATE: 06/07/2016 Events over the past 48 hours are noted. The patient was admitted on June 05, 2016 for failure to thrive. Reassuringly, his hypercalcemia which was treated on June 02, 2015, with Zometa has normalized from a level of 12.3 down at 10.1. Clinically, the patient and I discussed prognosis of his disease. He has with his decided to move into hospice/comfort measures. I did discuss starting him on dexamethasone at 8 mg for four days, followed by 4 mg in the morning thereafter. Indication would be multifactorial including improving quality of life. The patient understands that if he does start to feel better and would like to pursue further treatment, then he can move on to hospice and into the clinic at any time. He had no further questions.
[2016-06-07 20:59] VITALS: BP 103/59; PULSE 96; RESP 19; O2SAT 94
[2016-06-07 21:03] VITALS: BP 122/66; PULSE 71; RESP 18; O2SAT 92
--- NOTE | 2016-06-08 04:16 | NUR ---
REST Patient resting comfortably, denies pain and or discomfort at this time. Bed in low position, wheels locked. Call light within reach, intentional repositioning q2h.
[2016-06-08 04:38] VITALS: BP 111/64; PULSE 76; RESP 18; O2SAT 95
[2016-06-08] MEDS: 0.9% Sodium Chloride 1,000 ML IV SCH (05:50)
--- NOTE | 2016-06-08 12:26 | PCM.DIMED ---
Discharge Instructions Date of Service Jun 08, 2016 Dates of Hospitalization Jun 05, 2016 at 22:02 Discharge Diagnosis Discharge Diagnosis weakness Medication Instructions ingest as many calories as possible if swallowing becomes difficult or you have continual coughing after swallowing alert the ancillary staff Diet No restrictions Activity No restrictions Patient Instructions Follow-up with PCP in: Other (at your own convienience ) Ab Ayon MD Jun 08, 2016 12:26
--- NOTE | 2016-06-08 13:38 | NUR ---
Faxed orders to [facility] and they are arranging transport and plan to be here about 1430. Updated JOURNAL CLERK and RN
--- NOTE | 2016-06-08 14:46 | NUR ---
transport cancelled pt unable to tolerate standing, very, very weak now. Had to cancel W/C transport, and will need to set up transport with S
--- NOTE | 2016-06-08 15:23 | NUR ---
transport/weakness pt is so weak now he is completely unable to stand, he can barely lift his arm, it would not be safe to transport him in a W/C because he would likely fall out of it.
[2016-06-08 15:31] VITALS: BP 113/66; PULSE 99; RESP 18; O2SAT 92
--- NOTE | 2016-06-08 15:45 | NUR ---
Social Work Continued Discharge Planning: LUISA met with patient and . Plan is SNF placement at [facility] with hospice services to open on Sunday via [facility] at 10am-11am. LUISA spoke to [facility] [place] Gustavo who states that patient accepted today and bed available. SW spoke to [facility] Aislinn who states opening tomorrow or Sunday at this time due to limited staffing. Facility arranged transport for pick up driver. Patient unable to transfer to wheelchair. LUISA fast food sales assistant aware and to arrange transport with [facility]. Chart copy compiled and PASSR faxed to facility and placed in envelope. No other needs identified PLAN: [facility] [place] via [facility] services for open on Sunday/Sun. Transport via [facility] at 5:30pm. Lydia BRASWELL
--- NOTE | 2016-06-08 16:15 | NUR ---
Arranged BLS transport via [facility] for 1714 to [facility] Updated RESOURCE ROOM TEACHER and RN
--- NOTE | 2016-06-08 17:10 | NUR ---
discharged to [facility] per BLS, report called to SNF earlier
--- NOTE | 2016-06-27 16:09 | PCM.DC.MED ---
Discharge Summary Date of Service Jun 27, 2016 Dates of Hospitalization Date of Hospital Admission Jun 05, 2016 at 22:02 Date of Discharge: Jun 07, 2016 Providers: Admitting Physician: Deisi Schmitz MD Primary Care Physician: Khang Rodas MD Attending Physician: Deisi Schmitz MD Diagnosis at Time of Discharge Diagnosis at Time of Discharge weakness Procedures XRay, CTs & MRIs Patient Name: TODD JOSEPH MR#: [id number] Location: SED Ordering Phys: DEBRA JIMÉNEZ MD Date of Service: 06/05/16 1720 PROCEDURE: X-RAY CHEST ONE VIEW, PORTABLE ([id number]) INDICATIONS: 81 year-old male with shortness of breath. TECHNIQUE: One view of the chest was acquired. COMPARISON: [facility], CT, CT CHEST ABD PELVIS W CON, 06/02/2016, 13:47. [facility], CR, XR CHEST 1VW, 03/08/2016, 13:54. [facility], CR, XR CHEST 2VW, 02/21/2016, 17:38. [facility], CR, XR CHEST 1VW (PORTABLE), 04/13/2015, 3:37. FINDINGS: Surgical changes and devices: Patient is status post coronary artery bypass grafting and cholecystectomy. Lungs and pleura: Moderate right and small left subpulmonic pleural effusions are unchanged. No pneumothorax. There is persistent right lower lung airspace opacity. Mediastinum: Mediastinal contours appear normal. There is mild cardiomegaly. There is aortic atherosclerosis. Bones and chest wall: No suspicious bony lesions. Overlying soft tissues appear unremarkable. IMPRESSION: 1. Persistent moderate right and small left subpulmonic pleural effusions. 2. Persistent right lower lung airspace opacity, consistent with compressive atelectasis as better seen on recent CT scan. Dictated by: Fish Boyle M.D. on 06/05/2016 at 19:10 Approved by: Fish Boyle M.D. on 06/05/2016 at 19:10 Patient Name: TODD JOSEPH MR#: [id number] Location: SCT Ordering Phys: Sang Rao DO Date of Service: 06/02/16 1237 PROCEDURE: CT CHEST, ABDOMEN AND PELVIS WT CONTRAST ([id number]) INDICATIONS: NON HODGKINS LYMPHOMA,RESTAGE TECHNIQUE: After the administration of oral and intravenous contrast, 5 mm thick sections acquired from the lung apices to the symphysis. 5 mm coronal and sagittal reformats were performed, with additional 7 mm coronal MIP reformats through the lungs. For radiation dose reduction, the following was used: automated exposure control, adjustment of mA and/or kV according to patient size. COMPARISON: [facility], CT, CT CHEST ABD PELVIS W CON, 02/04/2016, 13:23. [facility], CR, CHEST 1VW, 12/08/2014, 9:46. [facility], CT, CHEST/ABD/PELVIS W/CON (PNL), 01/28/2014, 16:34. [facility], CT, CHEST/ABD/PELVIS W/CON (PNL), 01/21/2013, 11:30. [facility], CT, NECK/CHEST/ABD/PEL W/CONT (P), 09/18/2011, 15:45. [facility], CT, CT CHEST ABD PELVIS W CON, 06/16/2015, 13:25. [facility], CT, CT CHEST ABD PELVIS W CON, 04/03/2016, 15:39. FINDINGS: Image quality: Excellent. CHEST: Lungs and pleura: Atelectasis within the right lung base is stable compared to prior examination. Rounded atelectasis in the left lung base/lateral lingula is stable compared to prior examination. Moderate-sized peripheral enhancing right- sided pleural fluid collection is stable. Small, peripherally enhancing left- sided pleural fluid collection is stable. Central and peripheral airways appear patent and normal in caliber. Mediastinum: The heart is enlarged. Postsurgical changes compatible with prior CABG procedure again noted. No pericardial effusion. Left paramedian, prevascular mediastinal soft tissue density mass is stable in size and contour compared to prior CT scan measuring 3.3 x 2.8 cm in the current study (3.4 x 2.7 cm previously). Precarinal mediastinal lymphadenopathy is stable compared to prior examination measuring 1.4 cm in the short axis in the current study ( 1.4 cm previously). No new mediastinal lymphadenopathy identified. No hilar adenopathy by size criteria. Thoracic aorta and central pulmonary arteries are normal in size. Esophagus is normal in caliber. Small hiatal hernia is stable. Chest wall: No axillary or supraclavicular adenopathy by size criteria. Thyroid gland is within normal limits. ABDOMEN: Solid organs: Liver is normal in size and enhancement. The spleen is mildly enlarged at 15.3 cm in longitudinal axis. Gallbladder is surgically absent. Biliary system is non dilated. Pancreas enhances normally. No adrenal nodules. Kidneys demonstrate normal size with diminished bilateral enhancement and bilateral moderate hydroureteronephrosis related to bulky pelvic lymphadenopathy. Peritoneum and bowel: Bowel loops demonstrate normal wall thickness and caliber. Moderate amount of stool seen throughout the colon. No free air. Moderate amount of scattered ascites is noted in the abdomen and pelvis. Nodes and vessels: Bulky, confluent, bilateral iliac mayelin masses are increased in size compared to prior examinations. The confluent, bulky pelvic lymphadenopathy is having mass effect on loops of bowel, the distal ureters, urinary bladder and the pelvic vasculature. Aorta and inferior vena cava are normal in size. Miscellaneous: No ventral hernias. PELVIS: Genitourinary: Bladder wall thickness is normal. Miscellaneous: No inguinal hernias. Bulky right inguinal lymphadenopathy is noted with largest lymph node measuring 2.6 cm in short axis. Large lymph node is noted in the subcutaneous fat of anterior left pelvic wall that measures 1.7 cm in short axis. Bones: No suspicious bony lesions. No vertebral body compression fractures. Postsurgical changes compatible with right hip arthroplasty are noted. IMPRESSION: 1. Bilateral pleural fluid collections stable compared to 04/03/16. 2. Mediastinal lymphadenopathy stable compared to 04/03/16. 3. Bulky, bilateral iliac pelvic mayelin mass markedly increased in size compared to 04/03/16. The bulky pelvic mayelin mass is having marked local mass effect in the lower pelvis. 4. Moderate bilateral hydroureteronephrosis related to bulky pelvic mayelin mass with diminished bilateral renal enhancement compatible with obstructive uropathy. 5. New right inguinal bulky lymphadenopathy and enlarged left anterior pelvic wall subcutaneous lymphadenopathy. 6. Moderate fecal loading throughout the colon likely related to mass effect on the rectosigmoid colon caused by the bulky pelvic mayelin mass. 7. Mild splenomegaly. Dictated by: Fanny King MD, PhD on 06/02/2016 at 15:30 Approved by: Fanny King MD, PhD on 06/02/2016 at 15:30 Brief History This is an 81-year-old male who has a history of non-Hodgkin's lymphoma who presented to the ER with increasing generalized weakness over the past 1 week. Decreased appetite along with increased urinary frequency. He did go to his oncologist office today Dr. Rao and per was told that his lymphoma has been progressing. He and his at this point requested comfort care only. She does have a pulse form with her and also includes no antibiotic therapy. At this point he is too weak for the to take care of him and are looking for possible placement. 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 # Type II diabetes, chronic, present on admission We will continue with his metformin # Hyperlipidemia, chronic, present on admission Continue with statin therapy # Oral anticoagulation, chronic, present on admission Continue with apixaban which I believe he is on this for paroxysmal atrial fibrillation # DVT prophylaxis Patient is on apixaban # CODE STATUS DO NOT RESUSCITATE DO NOT INTUBATE Exam Test 06/05/16 17:36 06/05/16 19:50 White Blood Count 3.7th/mm3 (3.8-10.1) Red Blood Count 4.07mil/mm3 (4.40-5.80) Hemoglobin 9.6g/dL (13.8-17.2) Hematocrit 31.2% (41.0-50.0) Mean Corpuscular Volume 76.7fL (81-100) Mean Corpuscular Hemoglobin 23.6pg (27.0-35.0) Mean Corpuscular Hemoglobin Concent 30.8% (32.0-37.0) Red Cell Distribution Width 22.9% (12.3-15.4) Platelet Count 76bil/L (150-400) Neutrophils (%) (Auto) 61.2% (40-74) Lymphocytes (%) (Auto) 23.0% (14-46) Monocytes (%) (Auto) 14.4% (4-12) Eosinophils (%) (Auto) 0.3% (0-5) Basophils (%) (Auto) 0.8% (0-3) Sodium Level 138mEq/L (134-144) Potassium Level 4.4mEq/L (3.5-5.2) Chloride Level 97mEq/L (97-108) Carbon Dioxide Level 23mmol/L (18-29) Blood Urea Nitrogen 33mg/dL (8-27) Creatinine 1.59mg/dL (0.76-1.27) Estimat Glomerular Filtration Rate 45mL/min (>59) Glucose Level 100mg/dL (60-99) Calcium Level 10.1mg/dL (8.5-10.1) Magnesium Level 2.2mg/dL (1.6-2.6) Total Bilirubin 0.9mg/dL (0.0-1.2) Aspartate Amino Transf (AST/SGOT) 30U/L (0-50) Alanine Aminotransferase (ALT/SGPT) 10U/L (0-44) Alkaline Phosphatase 95U/L (25-160) Troponin T < 0.010ug/L (0.0-0.011) Total Protein 6.2g/dL (6.4-8.4) Albumin 3.4g/dL (3.4-5.0) Urine Color Yellow (YELLOW) Urine Appearance Cloudy (CLEAR,HAZY) Urine pH 5.0 (5.0-8.0) Urine Specific [place] 1.025 (1.003-1.035) Urine Protein 100mg/dL (NEG,TRACE) Urine Glucose (UA) Negativemg/dL (NEGATIVE) Urine Ketones Tracemg/dL (NEGATIVE) Urine Occult Blood Large (NEGATIVE) Urine Nitrite Negative (NEGATIVE) Urine Bilirubin Negative (NEGATIVE) Urine Urobilinogen Normalmg/dL (NORMAL) Urine Leukocyte Esterase Negative (NEGATIVE) Urine RBC Packed/hpf (0-2) Urine WBC 0-5/hpf (0-5) Urine Epithelial Cells Moderate/hpf (NONE-MOD) Urine Crystals Amorphous urates (NONE Urine Bacteria Few/hpf (NONE-FEW) Urine Hyaline Casts None/lpf (NONE) Urine Granular Casts 5-20 (NONE SEEN) Urine Waxy Casts None seen (NONE SEEN) Urine Red Blood Cell Casts None seen (NONE SEEN) Urine White Blood Cell Casts None seen (NONE SEEN) Urine Mucus None seen (None Seen) Urine Trichomonas None seen (NONE SEEN) Urine Yeast None (NONE SEEN) Urinalysis Comment None Urine Culture Reflexed Not indicated Discharge Medications Discharge Medications Apixaban (Eliquis) 5 Mg Tablet 5 MG PO BID (Reported) Atorvastatin (Lipitor) 40 Mg Tablet 40 MG PO DAILY (Reported) Cholecalciferol (Vitamin D3) (Vitamin D3) 2,000 Unit Tablet 2,000 UNIT PO DAILY (Reported) Metformin (Metformin) 500 Mg Tablet 500 MG PO BIDWM (Reported) Metoprolol Tartrate (Metoprolol Tartrate) 25 Mg Tablet 12.5 MG PO BID (Reported ) Additional med instructions ingest as many calories as possible if swallowing becomes difficult or you have continual coughing after swallowing alert the ancillary staff Followup Plan Discharge Diet: No restrictions Discharge Activity: No restrictions Follow-up with PCP in: Other (at your own convienience ) Ab Ayon MD Jun 27, 2016 16:09
== END 2016-06-08 17:22 ==
LOC: SED 16:00 → OSC 22:02
PROVIDERS: ADMIT Specialist; ATTEND Specialist
DX: R53.1 Weakness (principal); E43 Unspecified severe protein-calorie malnutrition; C85.96 Non-Hodgkin lymphoma, unspecified, intrapelvic lymph nodes; D69.59 Other secondary thrombocytopenia; I25.10 Atherosclerotic heart disease of native coronary artery without angina pectoris; E11.9 Type 2 diabetes mellitus without complications; I10 Essential (primary) hypertension; Z86.73 Personal history of transient ischemic attack (TIA), and cerebral infarction without residual deficits; Z95.1 Presence of aortocoronary bypass graft
CPT/HCPCS: 36415; 71010; 80053; 81000; 83735; 84484; 85025; 93005; 96360; 97602; 99285; G0378; G0463; J7030